=== PATIENT | female | born 1990 | race African-American/Black ===

== ENCOUNTER 2023-04-10 11:20 | Emergency (ER) | payer SELFPAY ==
[2023-04-10 12:05] VITALS: BP 105/77
[2023-04-10 12:23] LABS: % Basophils 0.6 % (0-2); % Eosinophils 0.6 % (0-6); % Immature Granulocytes 1.2 % (0-0.5); % Lymphocytes 24.1 % (20.5-51.1); % Monocytes 5.3 % (1.7-9.3); % Neutrophils 68.2 % (42.2-75.2); Absolute Immature Granulocytes 0.1 10^3/uL (0-0.05); Absolute Lymphocytes 1.6 10^3/uL (1.2-3.4); Absolute Monocytes 0.4 10^3/uL (0.1-0.6); Absolute Neutrophils 4.5 10^3/uL (1.4-6.5); Hematocrit 43.6 % (37.0-47.0); Hemoglobin 14.7 g/dL (12.0-16.0); Mean Corp Hgb Conc. 33.7 g/dL (33.0-37.0); Mean Corpuscular Hgb 26.7 pg (27.0-31.0); Mean Corpuscular Volume 79.3 fL (81.0-99.0); Mean Platelet Volume 9.1 fL (7.4-10.4); Nucleated Red Blood Cells % 0 %; Platelet Count 436 10^3/uL (130-400); Red Cell Dist. Width 13.9 % (11.5-14.5); White Blood Cell Count 6.7 10^3/uL (4.8-10.8)
[2023-04-10 12:33] LABS: HCG, Serum Qualitative Screen Negative
[2023-04-10] MEDS: HALDOL 5 MG IM (12:35)
[2023-04-10] MEDS: ATIVAN 2 MG IM (12:35)
[2023-04-10 12:37] LABS: Alcohol 177 mg/dl; Blood Urea Nitrogen 4 mg/dl (7-17); Calcium 9.5 mg/dl (8.4-10.2); Carbon Dioxide 18 mmol/L (22-30); Chloride 110 mmol/L (98-107); Glucose 90 mg/dl (70-99); Potassium 4.7 mmol/L (3.5-5.1); Sodium 142 mmol/L (135-145); eGFR > 60.00
--- NOTE | 2023-04-10 13:15 | ED.GENMED ---
Addendum entered and electronically signed by Eran Nguyen DO 04/11/23 12:58:
Correction to my correction
my order for soft restraints at 1306 on April 10, 2023 was inaccurate the verbal order at 1237 for locked restraints was a valid order
Addendum entered and electronically signed by Eran Nguyen DO 04/11/23 09:38:
Correction
Order for soft restraints at 1306 on 04/10/2023 was an accurate, the verbal order at 1237 for locked restraints was the intended invalid order
Original Note:
History of Present Illness
General
Chief Complaint: Crisis Evaluation
Source: patient and family
Exam Limitations: altered mental status
Time Seen by Provider: 04/10/23 12:03
Nursing documentation reviewed up to this point in time: agreed with
Travel History
Have you had any contact with someone who has COVID-19?: No
Do you have any symptoms of coronavirus? Fever > 100 degrees, chills, cough, shortness of breath, sore throat, loss of taste or smell, muscle aches, or headache?: No
History of Present Illness
History of Present Illness:
32-year-old female schizoaffective EMS apparently's been depressed and agitated drinking alcohol not caring for herself, I received a call from EMS, she was agitated Versed was ordered my evaluation she appeared disheveled, poor eye contact, not
cooperative, she and her apparently recently she has a child who is school-aged
She is from [place] recently moved to this area to be with her parents who are here in the ER providing a lot of the history
Past History
Past History
ED Past Medical History: Psychiatric
Social History
Tobacco: Non-smoker
Alcohol: Occasional
Drug: None
Personal: Single
Living: with family
Employment: Not employed
Review of Systems
Review of Systems
All Other Systems: Not applicable
Phy Exam
Physical Exam
Physical Exam:
Physical Exam
General: Agitated, using profanities
Neck: No tongue bite
Lungs: no acute respiratory distress
Neuro: Moves all
Skin: no rash
Psychiatric: Agitated manic
Extremities: no edema.
Course
Orders/Labs/Results
Orders:
Orders
04/10/23 11:23
Urine Drug Abuse Screen Urgent
Date Specimen was Collected: 04/10/23
Time Specimen was Collected: 11:24
04/10/23 11:24
Test Result ONCE
04/10/23 11:35
Case Management Consult ONCE
Case Management Consult: Suicide Risk
04/10/23 11:54
Alcohol Urgent
Basic Metabolic Panel Urgent
Complete Blood Count/With Diff Urgent
HCG, Serum Qualitative Screen Urgent
04/10/23 12:29
Haloperidol Lactate [Haldol] 5 mg .ROUTE .STK-MED ONE
Lorazepam [Ativan] 2 mg .ROUTE .STK-MED ONE
04/10/23 12:32
Haloperidol Lactate [Haldol] 5 mg IM NOW STA
Lorazepam [Ativan] 2 mg IM NOW STA
04/10/23 12:37
Restraints - Violent As Directed
Restraint Type-: Locked-4 point/4 rails
Apply From (date): 04/10/23
Apply from (time): 12:37
Remove (date): 04/10/23
Remove (time): 16:50
04/10/23 12:48
Electrocardiogram (*1) Urgent
Reason for Study: QTc Monitoring
Crisis Consult Urgent
Reason for Consult: 302
EKG- Treatment ONCE
04/10/23 12:51
1:1 Observation - Suicide/ Violent Behavior As Directed
04/10/23 13:06
Restraints - Violent As Directed
Restraint Type-: Soft Limb-4 point/4 rails
Apply From (date): 04/10/23
Apply from (time): 13:06
Remove (date): 04/10/23
Remove (time): 17:06
Abnormal Lab Results
04/10/23
11:54
RBC 5.50 H 10^6/uL
(4.20-5.40)
MCV 79.3 L fL
(81.0-99.0)
MCH 26.7 L pg
(27.0-31.0)
Plt Count 436 H 10^3/uL
(130-400)
Abs Immat Gran (auto) 0.1 H 10^3/uL
(0-0.05)
Immature Gran % 1.2 H %
(0-0.5)
Chloride 110 H mmol/L
(98-107)
Carbon Dioxide 18 L mmol/L
(22-30)
BUN 4 L mg/dl
(7-17)
04/10/23 11:54
04/10/23 11:54
Vital Signs
Initial and Last Documented VS:
Initial Vital Signs
Temp Pulse Resp BP Pulse Ox
98.1 F 110 20 105/77 98
04/10/23 12:05 04/10/23 12:05 04/10/23 12:05 04/10/23 12:05 04/10/23 12:05
Last Documented Vital Signs
Temp Pulse Resp BP Pulse Ox
98.1 F 110 20 105/77 98
04/10/23 12:04/10/23 12:04/10/23 12:05 04/10/23 12:05 04/10/23 12:05
MDM/Problems Addressed
Differential Diagnosis Includes:
Primary psychiatric intoxication withdrawal doubt [employer] infection by history and physical
MDM/Problems Addressed:
Agitation not caring for self
Chronic conditions affecting care:
Poor vision mentally ill
Chronic conditions affecting care: Psychiatric illness
Acute Exacerbation and/or Progression of Chronic Illness: Psychiatric illness
*Pulse Oximetry
Patient hypoxic: no
*Critical Care Note
Total Time (30-74mins, 75-104mins- exclusive of procedures): Not Applicable
Update Note
Update Note:
Update history obtained through the patient also through her parents I will complete 302 she is apparently been hearing voices not caring for herself not bathing family is concerned for her safety also the safety for her child will be chemically and
physically restrained for her safety
ED Attending Note
-
Portions of this chart may have been created with voice recognition software.� Occasional wrong word or��sound alike� substitutions may have occurred due to the inherent limitations of voice recognition software.
Discharge Plan
Departure
Patient Disposition: Psych Facility
Date of Disposition: 04/10/23
Time of Disposition: 13:18
Patient with high blood pressure during this ER visit?: No
Condition: Good
Discharge Problem:
Schizoaffective disorder
Interventions
Interventions:
*Risk Screen - Suicide Last Done: 04/10/23 11:27
*General Assessment Last Done: 04/10/23 11:27
*Neglect/Abuse Screening Last Done: 04/10/23 11:27
*ED COVID-19 Vaccine History Last Done: 04/10/23 11:27
ED-Psychological Assessment Last Done: 04/10/23 11:27
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
[2023-04-10] MEDS: ATIVAN PO (22:11)
[2023-04-11 00:19] VITALS: BP 102/76
[2023-04-11] MEDS: ATIVAN PO ×3 (08:45→23:01)
[2023-04-11 08:48] VITALS: BP 126/88
--- NOTE | 2023-04-11 09:06 | EDRN ---
Patient denies any thoughts of suicide. Patient stated 'I don't know' when asked if she had any allergies.
--- NOTE | 2023-04-11 09:27 | ED.CRISIS ---
ED Crisis Note
ED Crisis Note
Subjective:
Psychiatry notes reviewed patient resting comfortably much calmer today than yesterday out of restraints
Objective:
Awaiting placement
Assessment/Plan:
Schizoaffective psychosis failure to care for self 302 upheld by psychiatry
--- NOTE | 2023-04-11 14:28 | W.PN.UPDATE ---
Update Note
Progress Note Update
patient seen chart reviewed. patient does talk but in very very limited fashion. she asked why she is here but even after explanation does not seem to understand and will not discuss any relevant issues. she does not even really say she wants to
go home. she has been lying on the [place] with her eyes closed. she has consumed fluids but no food since admission here. she has so far refused medication. filing a 303 commitment. if we are able to get the 303 will consider im medications.
will get chem profile in the am. if it is abnormal that will provide another reason for iv fluids.
[2023-04-11 15:30] LABS: ALT (SGPT) 13 U/L (0-35); AST (SGOT) 37 U/L (14-36); Albumin 4.1 g/dl (3.5-5.0); Alkaline Phosphatase 93 U/L (38-126); Direct Bilirubin 0.5 mg/dl (0.0-0.4); Total Bilirubin 0.8 mg/dl (0.2-1.3); Total Protein 6.5 g/dl (6.3-8.2)
[2023-04-12 00:37] VITALS: BP 113/81
[2023-04-12 01:15] LABS: Amphetamines Negative (Negative); Barbiturates Negative (Negative); Benzodiazepines Positive (Negative); Buprenorphine Negative (Negative); Cocaine Negative (Negative); Marijuana Negative (Negative); Methadone Negative (Negative); Methamphetamines Negative (Negative); Opiates Negative (Negative); Phencyclidine Negative (Negative); Tricyclic Antidepressants Negative (Negative)
[2023-04-12 01:30] LABS: Fentanyl, Urine Negative (Negative)
[2023-04-12 07:49] VITALS: BP 125/81; BMI 19.5
--- NOTE | 2023-04-12 07:54 | EDRN ---
this RN entered crisis room area and mental health corporate security manager stated that the pt was in the bathroom getting ready for the day, this RN waited for the pt to be finished with the bathroom, the pt was compliant with this RN obtaining vital
signs, the pt is calm and cooperative with a flat affect, no c/o pain, no c/o chest pain, no c/o SOB, no s/s of distress, mental health corporate security manager stated that the pts breakfast was ordered, will continue to monitor the pt closely
--- NOTE | 2023-04-12 08:46 | EDRN ---
this RN took notice that allergies have not been entered for the pts chart, this RN will review allergies with the pt
--- NOTE | 2023-04-12 08:50 | EDRN ---
this RN spoke with the pt and the pt stated to this RN, 'I don't believe that i am allergic to any medications or food, i have never had an allergic reaction to anything that i know of', this RN also spoke with zaira who reviewed the pts paper work
and zaira stated that there are no allergies listed for the pt
[2023-04-12] MEDS: ATIVAN 1 MG PO ×2 (09:48→16:13)
--- NOTE | 2023-04-12 11:06 | W.PN.UPDATE ---
Update Note
Progress Note Update
lan continues to refuse to take medications with the exception of this am when she accepted an ativan. on a + note she is eating and drinking. she is talking a little. she is clearly depressed and she admitted to me she has auditory
hallucinations. she denies suicidality today but the level of depression is such that she very much needs treatment. i am pursuing a 303 at this point as she has not cooperated with any out pt treatment and she was near catatonic at admit and
there was an episode of aggression which can be seen with catatonia. if i could with certainly get her into a partial hospital program i would consider dc to [facility] getting her in anywhere is gage w alicia she has [employer] and [employer] is not
willing to fund her at this point although we do have four days of [facility] funding for in patient.
[2023-04-12] MEDS: ATIVAN PO (22:14)
[2023-04-12 22:15] VITALS: BP 125/83
== END 2023-04-13 00:53 ==
LOC: EMR 11:20
PROVIDERS: Psychiatry & Neurology Psychiatry; EMERGENCY PHYSICIAN Emergency Medicine
DX: F25.9 Schizoaffective disorder, unspecified (principal); R41.82 Altered mental status, unspecified
CPT/HCPCS: 99285; 96372; 80048; 80076; 80306; 80307; 82077; 84703; 85025; 93005